=== PATIENT | female | born 1945 | race Caucasian/White ===

== ENCOUNTER 2018-08-30 08:02 | Day surgery (SDC) | payer MEDICARE, OTHER, SELFPAY ==
[2018-08-30 08:23] VITALS: BP 136/76; PULSE 75; RESP 16; TEMP 35.9; O2SAT 99
[2018-08-30] MEDS: Povidone-Iodine Soln. 118 ML BTL TP (08:42)
[2018-08-30] MEDS: Lactated Ringers 1,000 ML 80 ML IV (08:57)
[2018-08-30] MEDS: ceFAZolin 1 GM/50 ML BAG IVPB (10:00)
[2018-08-30] MEDS: Bupivacaine 0.5% Pres-Free 30 ML VIAL (10:20)
[2018-08-30] MEDS: Lidocaine 1% Pres-Free 5 ML VIAL (10:20)
[2018-08-30] MEDS: Dexamethasone 4 MG/ML VIAL (10:37)
--- NOTE | 2018-08-30 11:02 | W.PM.DSUDISC ---
Discharge Plan Disposition Patient Disposition: HOME Condition: Good Discharge Details Reason For Visit: HAV Attending Provider: Stephan Alfaro Primary Care Provider: Kya Perez Home Meds and New Rx's Prescriptions: No Action aspirin 325 mg Tablet 325 mg DAILY RF: 0 hydrochlorothiazide 25 mg Tablet 25 mg PO DAILY RF: 0 lovastatin 20 mg Tablet 20 mg PO DAILY RF: 0 metformin 1,000 mg Tablet 1,000 mg PO BID RF: 0 multivitamin Tablet DAILY RF: 0 Ozempic 0.25 mg or 0.5 mg(2 mg/1.5 mL) Pen Injector 0.5 mg SUBCUT QWEEK RF: 0 Tresiba FlexTouch U-100 100 unit/mL (3 mL) Insulin Pen 10 unit DAILY RF: 0 cyanocobalamin (vitamin B-12) [Vitamin B-12] 1,000 mcg Tablet 1,000 mcg DAILY RF: 0 cholecalciferol (vitamin D3) [Vitamin D3] 1,000 unit Capsule 1,000 DAILY RF: 0 acetaminophen [Tylenol] 325 mg Capsule 650 mg PO Q6H PRNRF: 0 Discharge Orders Discharge Orders: Discharge Order (Routine); Ordered 08/30/18 Ordered By: Stephan Alfaro DS: Diagnosis Discharge Diagnosis (1) Hallux valgus of right foot: Status: Acute
--- NOTE | 2018-08-30 11:36 | ROE_ITS ---
REPORT OF OPERATIVE PROCEDURE DATE OF PROCEDURE August 30, 2018 PREOPERATIVE DIAGNOSIS Symptomatic right hallux abductovalgus deformity. POSTOPERATIVE DIAGNOSIS Symptomatic right hallux abductovalgus deformity. PROCEDURE Modified Larose bunionectomy. SURGEON Stephan Alfaro DPM. ANESTHESIA IV general with local block of the first ray utilizing 10 cc of 50:50 mixture of 1% Lidocaine plain a nd 0.5% Marcaine plain. OPERATIVE INDICATIONS A 73-year-old female with pain associated with a right bunion deformity which has not responded to pa lliative measures. Jayla understands the risks and complications of surgery pertaining to pain, scarri ng, infection, stiffness of the joint. She understands the potential for revisional procedures. Infor med consent has been obtained. No promises made final outcome of surgery. DESCRIPTION OF REPORT OF OPERATION Jayla was brought to the Operative Suite and placed in the supine position, where the right foot was p repped and draped in the usual sterile podiatric fashion. Anesthesia being obtained, the right foot was exsanguinated, and a well-padded ankle tourniquet inflated to 150 mmHg. Attention was directed to the right foot, where a 5 cm incision was made medial incision was made par allel to the EHL tendon. The incision was deepened in controlled-depth fashion. Hemostasis being acqu ired with electrocautery. Dissection was carried down to the joint capsule. A lateral dissection was performed consisting of a lateral capsulotomy adductor tendon release. The hallux relaxed significant ly. A flexor hallucis longus tenotomy was then performed. More relaxation appreciated. Attention was now directed medially, an inverted L capsulotomy was performed. The joint capsule was opened. Hypertrophy along the medial and dorsal aspect of the first metatarsal head was noted. With p naidaer instrumentation, the medial and dorsal hyperostoses were resected. All roughened bony edges were rasped smooth. Copious irrigation was performed. Good correction was appreciated. Bone wax was used over the exposed bone on the neck of the first metatarsal. A medial capsulorraphy was then performed and the joint capsule repaired with simple interrupted sutu re #3-0 Vicryl. The subcutaneous was then closed with #4-0 Vicryl. The skin was coapted with continuous running sutur e #4-0 Monocryl. 4 mg of dexamethasone phosphate was infused into the wound. Mastisol, 1/2 inch Steri -Strips, Xeroform gauze fluff, compression dressings applied. The patient left the OR with vital sig ns stable, vascular status intact. Sharp and sponge counts were correct. She will be followed by myself in the office next week. CC: Kya Perez NP
[2018-08-30 11:45] VITALS: BP 149/84; PULSE 73; RESP 16; TEMP 36.4; O2SAT 98
== END 2018-08-30 12:15 | disposition home or self-care (01) ==
PROVIDERS: PCP Registered Nurse; Visit Provider Podiatrist
PROC: (CPT 28292; principal; 2018-08-30 10:30)
DX: M20.11 Hallux valgus (acquired), right foot (principal); M21.611 Bunion of right foot; E11.9 Type 2 diabetes mellitus without complications
CPT/HCPCS: 28292; J0690; J1100; J2250

== ENCOUNTER 2021-08-19 06:13 | Day surgery (SDC) | payer MEDICARE, OTHER, SELFPAY ==
[2021-08-19 06:23] VITALS: BP 158/92; PULSE 87; RESP 16; TEMP 36.7; O2SAT 99
[2021-08-19] MEDS: Tropicam./Phenyleph. (1/2.5%) 5 ML BTL OS ×3 (06:53→07:13)
--- NOTE | 2021-08-19 07:05 | W.ANESPRE ---
General Info Date of Service Date Performed: 08/19/21 Height: 5 ft 1 in Weight: 63.7 kg Body Mass Index (BMI): 26.5 Surgical Procedure: Operation Date: 08/19/21 07:40 Proposed Procedure Side Surgeon p Cataract Extraction with IOL Implant Left Wolf Escalona MD Meds Allergies and Home Medications Allergies Allergy/AdvReac Type Severity Reaction Status Date / Time Fish Containing Products AdvReac Intermediate vomiting Verified 08/19/21 06:42 Home Medication Medication Instructions Recorded acetaminophen 325 mg capsule 650 mg PO Q6H PRN 08/27/18 (Tylenol) cholecalciferol (vitamin D3) 25 25 mcg PO DAILY 08/27/18 mcg (1,000 unit) capsule (Vitamin D3) cyanocobalamin (vitamin B-12) 1,000 mcg DAILY 08/27/18 1,000 mcg tablet (Vitamin B-12) hydrochlorothiazide 25 mg tablet 25 mg PO DAILY 08/27/18 insulin degludec 100 unit/mL (3 10 unit DAILY 08/27/18 mL) subcutaneous pen (Tresiba FlexTouch U-100 insulin) lovastatin 20 mg tablet 20 mg PO DAILY 08/27/18 metformin 1,000 mg tablet 1,000 mg PO BID 08/27/18 multivitamin DAILY 08/27/18 semaglutide (Ozempic) 1 mg SUBCUT QWEEK 08/27/18 hydrocodone 5 mg-acetaminophen 325 1 tab PO Q6H PRN #7 tab 08/30/18 mg tablet ibuprofen 600 mg tablet 600 mg PO QID PRN #30 tab 08/30/18 ferrous sulfate 325 mg (65 mg 325 mg PO DAILY 08/16/21 iron) tablet magnesium 200 mg tablet 200 mg PO DAILY 08/16/21 ropinirole 4 mg tablet,extended 8 mg PO DAILY 08/16/21 release 24 hr Current Visit Medications: Current Medications Generic Name Dose Route Start Last Admin Trade Name Freq PRN Reason Stop Dose Admin Acetaminophen 1,000 mg 08/19/21 06:00 Acetaminophen 500 Mg Tab PO Q4H PRN PRN Miscellaneous Medication 0 ml 08/19/21 06:00 Prednisolone 1%, Moxifloxacin 0.5%, Nepafenac 0.1% 5ml Btl OS DIRECTED JEMIMA Miscellaneous Medication 0 ml 08/19/21 06:00 08/19/21 06:58 Tropicam./Phenyleph. (1/2.5%) 5 Ml Btl OS 1 drp DIRECTED JEMIMA Administration Tetracaine HCl 0 ml 08/19/21 06:00 Tetracaine 0.5% 4 Ml Btl OS DIRECTED JEMIMA PFSH Active Problems Active Problems: Problem Status Onset Code Hallux valgus of right foot M20.11 Nuclear sclerotic cataract of left eye H25.12 Cortical cataract of left eye H26.9 Medical History Medical History Cataract Diabetes High cholesterol HTN (hypertension) Hx of ear disorder ear pressure, take HCTZ for Over weight Restless legs syndrome (RLS) Surgical History Surgical History History of breast surgery Biopsy History of bunionectomy left History of carpal tunnel release History of tonsillectomy History of wisdom tooth extraction Hx of section Hx of colonoscopy Hx of foot surgery left mid tarsal dorsal exostectomy Trigger finger Tobacco Smoking/Tobacco Use Status: Never Alcohol Alcohol Intake: never Substance Use Substance use: Never Substance use type: does not use Vital Signs and Lab Results Vital Signs Most Recent Vital Signs in EMR: Most Recent Vital Signs Temp Pulse Resp BP Pulse Ox 36.7 C 87 16 158/92 H 99 08/19/21 06:23 08/19/21 06:23 08/19/21 06:23 08/19/21 06:23 08/19/21 06:23 Point of Care Results Point of Care Results: Finger Stick Blood Glucose 144 08/19/21 06:50 Lab Results Blood Type / Crossmatch: No Data to Display Complete Blood Count: No Data to Display Complete Metabolic Panel: No Data to Display Liver Function Panel: No Data to Display Coagulation Panel: No Data to Display Cardiac Panel: No Data to Display Arterial Blood Gas: No Data to Display Venous Blood Gas: No Data to Display Pancreas Panel: No Data to Display Thyroid Panel: No Data to Display Infectious Disease: No Data to Display Blood Cultures: No Data to Display Toxicology Panel: No Data to Display Anesthesia Assessment and Plan Anesthesia History Personal History: No History of Anesthesia Complications Family History: No Family History of Anesthesia Complications Exercise Tolerance Exercise Tolerance: Metabolic Equivalents>4 Pertinent Negatives Pertinent Negatives: No Symptoms of GERD Cardiac & Pulmonary Exam Cardiac Exam: Normal S1/S2 Heart Sounds Pulmonary Exam: Clear Bilateral Breath Sounds Implantable Cardiac Device Does patient have a Pacemaker or an ICD?: No Airway Exam Known Difficult Airway: No Mallampati Class: 3 Mouth Opening: Normal (> 3cm) Thyromental Distance: Less than 3 cm Neck Range of Motion: Full ROM Neck Circumference: Normal Teeth Condition: Normal Dentition ASA Classification ASA Score: ASA 2 Emergency Case?: No NPO Status NPO Status: NPO Clears >2 hours, Solids >8 hours Anesthesia Plan Resuscitation Status: Full Code Anesthesia Technique: MAC Anesthesia Airway Planned: Natural Airway Monitors Used: Standard Monitors
[2021-08-19 07:09] VITALS: BMI 26.5
[2021-08-19] MEDS: Tetracaine 0.5% 4 ML BTL OS (07:32)
[2021-08-19] MEDS: Balanced Salt Soln.-PLUS 500 ML BAG (07:46)
[2021-08-19] MEDS: Povidone-Iodine Ophth 30 ML BTL (07:48)
[2021-08-19] MEDS: Duovisc Viscoelastic System EACH 1 EACH (07:49)
[2021-08-19] MEDS: Lidocaine 2% Jelly 6 ML SYR (07:49)
--- NOTE | 2021-08-19 08:04 | W.PM.DSUDISC ---
Discharge Plan Disposition Patient Disposition: HOME Condition: Good Discharge Details Attending Provider: Wolf Escalona Primary Care Provider: ADITHYA TREVINO Home Meds and New Rx's Prescriptions: No Action hydrochlorothiazide 25 mg Tablet 25 mg PO DAILY 0RF lovastatin 20 mg Tablet 20 mg PO DAILY 0RF metformin 1,000 mg Tablet 1,000 mg PO BID 0RF multivitamin Tablet DAILY 0RF Ozempic 0.25 mg or 0.5 mg(2 mg/1.5 mL) Pen Injector 1 mg SUBCUT QWEEK 0RF Tresiba FlexTouch U-100 100 unit/mL (3 mL) Insulin Pen 10 unit DAILY 0RF cyanocobalamin (vitamin B-12) [Vitamin B-12] 1,000 mcg Tablet 1,000 mcg DAILY 0RF cholecalciferol (vitamin D3) [Vitamin D3] 1,000 unit Capsule 25 mcg PO DAILY 0RF acetaminophen [Tylenol] 325 mg Capsule 650 mg PO Q6H PRN0RF ibuprofen 600 mg tablet 600 mg PO QID PRN (Reason: pain) Qty: 30 0RF hydrocodone-acetaminophen 5-325 mg tablet 1 tab PO Q6H PRN (Reason: moderate pain) Qty: 7 0RF ferrous sulfate 325 mg (65 mg iron) Tablet 325 mg PO DAILY 0RF magnesium 200 mg Tablet 200 mg PO DAILY 0RF ropinirole [Requip XL] 4 mg Tablet Extended Release 24 Hr 8 mg PO DAILY 0RF Discharge Instructions Stand Alone Forms: Post-op Topical Cataract, Jb Ganey (DSU) Discharge Orders Discharge Orders: Discharge Order (Routine); Ordered 08/19/21 Ordered By: Wolf Escalona DS: Diagnosis Discharge Diagnosis (1) Nuclear sclerotic cataract of left eye: Status: Resolved (2) Cortical cataract of left eye: Status: Resolved
[2021-08-19 08:05] VITALS: BP 163/99; PULSE 83; RESP 16; TEMP 36.3; O2SAT 98
--- NOTE | 2021-08-19 08:05 | W.PM.OP ---
Date of service: 08/19/21 Time of Service: 08:05 Operative Note Operative Note DATE OF PROCEDURE: 08/19/21 PRE-OP DIAGNOSIS: Nuclear/cortical cataract, left eye POST-OP DIAGNOSIS: same PROCEDURE: Cataract extraction using phacoemulsification with intraocular lens implant, left eye SURGEON: Wolf Escalona ANESTHESIA TYPE: Local By Surgeon and MAC Refer to Anesthesia Record PATHOLOGY: none sent COMPLICATIONS: None Patient was transported to: same day Patient's condition: stable Implants: Rohan and Rohan / [employer] Tecnis [id number] Indications: Progressive decreased vision due to cataract, left eye Procedure Description: CATARACT SURGERY OPERATIVE REPORT PREOPERATIVE DIAGNOSIS: 1. Nuclear/cortical cataract, left eye POSTOPERATIVE DIAGNOSIS: Same OPERATION: 1. Cataract extraction using phacoemulsification with posterior chamber intraocular lens implant, left eye. IOL: IOL Palletiser Operator/Model: Rohan & Rohan / JOSSELINE Tecnis [id number] IOL Power: + 22.5 diopters IOL Serial Number: [id number] Optic Diameter: 6.0 mm Haptic/Overall Diameter: 13.0 mm PHACO INFO: Reynaldo [employer] Vision System with OZil and Active [employer]uidics Cumulative Dispersed Energy (CDE): 9.40 seconds SURGEON: Wolf Escalona MD, GEORGINA ANESTHESIA: Monitored A [facility] (MAC), with local sub-tenon's anesthetic infiltration COMPLICATIONS: None SPECIMENS: None INDICATIONS FOR PROCEDURE: The patient is a 76-year-old lady with history of narrow anterior chamber angles who has undergone bilateral laser iridotomy. She has developed symptomatic bilateral nuclear/cortical cataracts. The option of cataract surgery was offered to the patient and she wished to proceed. PROCEDURE: The correct surgical eye was identified and marked as the left eye and the pupil was dilated in the preoperative area using mydriatics and cycloplegics. The dilated pupil size was 6.0 mm. She elected to proceed without oral sedation. patient was brought to the operating room where cardiopulmonary monitoring was instituted and surgical time-out was performed, confirming the correct operative eye and IOL power. Topical anesthesia was administered and ophthalmic povidone-iodine 5% was instilled into the conjunctival fornices. Lidocaine gel was applied to the cornea and the farzad-ocular area was prepped with Betadine 10% solution and draped in the usual sterile fashion for intraocular surgery, including an aperture drape. A Tegaderm transparent film dressing was cut in half and used to cover the lashes and lid margins. Care was taken to sequester the lashes and lid margins under the Tegaderm dressing. A lid speculum was placed between the lids of the operative eye and the Reynaldo Lux[employer] Revalia operating microscope was maneuvered into position. Kathya scissors were then used to make a conjunctival buttonhole approximately 6mm posterior to the limbus in the inferonasal quadrant. Blunt dissection was carried out to expose bare sclera, and a blunt-tipped sub-tenon?s anesthesia cannula was introduced and passed posteriorly along the globe where non-preserved plain lidocaine was injected into posterior sub-Tenon?s space. A sideport knife was used to make a paracentesis port superiorly/superiortemporally. Intraocular phenylephrine/lidocaine was injected int the anterior chamber.. The anterior chamber was filled with viscoelastic. The anterior chamber was noted to be quite shallow. A 2.4mm keratome knife was used to create a half-thickness groove at the limbus and then to construct a three-plane near-clear corneal tunnel extending 2.0mm into clear cornea at the 3:00 position. A flap was raised on the anterior capsule and capsulorhexis forceps were used to complete a continuous curvilinear capsulorhexis of 5.0 mm. Balanced salt solution was then used to perform cortical cleaving hydrodissection and nuclear hydrodelineation until the lens could be freely rotated within the capsular bag. The lens nucleus was then disassembled and removed within the capsular bag and iris plane using phacoemulsification. Residual cortical material was removed using the 45-degree angled silicone I/A tip with 0.3mm port. The posterior capsule was carefully polished to remove as much residual lens epithelial cells as safely possible. The capsular bag was then inflated and the anterior chamber deepened with viscoelastic. The lens implant described above was inserted into the capsular bag using the JOSSELINE [place] Injector. A Kuglen hook was used to dial the IOL into position. Residual viscoelastic was then removed first from posterior to the IOL, then from the anterior chamber using the I/A handpiece. The lens implant was noted to center nicely within the capsular bag. The incisions were stromally hydrated, and the anterior chamber was reformed using BSS. Then 0.5cc of moxifloxacin 1.0mg/ml were injected into the capsular bag and anterior chamber. The incisions were checked with a Weck spear and found to be secure. Several drops of ophthalmic povidone-iodine 5% were then applied to the eye followed by two drops of Imprimis combination prednisolone/moxifloxacin/nepafenac solution. The drapes were removed and a clear plastic protective eye shield was placed over the eye. The patient was then returned to Same Day Surgery in stable condition.
--- NOTE | 2021-08-19 08:41 | W.ANESPOSTOP ---
Postoperative Evaluation Date, Time and Location Date Performed: 08/19/21 Time Performed: 08:10 Patient Location: Day Surgery Unit Vital Signs Most Recent Imported Vital Signs: Most Recent Vital Signs Temp Pulse Resp BP Pulse Ox 36.3 C L 83 16 163/99 H 98 08/19/21 08:05 08/19/21 08:05 08/19/21 08:05 08/19/21 08:05 08/19/21 08:05 Pain Score Most Recent Pain Score: Most Recent Pain Score Pain Level 0 08/19/21 08:05 Assessment Mental Status: Awake (Alert & Oriented to Patient Baseline) Airway and Respiratory Function: Patent airway with normal (patient baseline) respiratory exam Cardiovascular Function: Hemodynamically Stable Hydration Status: Adequately Hydrated Nausea & Vomiting: No Nausea or Vomiting Pain: Pt. Denies Any Pain Peripheral Nerve Block: Patient did not receive a nerve block
== END 2021-08-19 08:29 | disposition home or self-care (01) ==
PROVIDERS: PCP Registered Nurse; Visit Provider Ophthalmology
PROC: (CPT 66984; principal; 2021-08-19 07:30)
DX: H25.12 Age-related nuclear cataract, left eye (principal); E11.9 Type 2 diabetes mellitus without complications; E78.00 Pure hypercholesterolemia, unspecified; I10 Essential (primary) hypertension
CPT/HCPCS: 66984; V2632

== ENCOUNTER 2021-09-02 07:28 | Day surgery (SDC) | payer MEDICARE, OTHER, SELFPAY ==
--- NOTE | 2021-09-02 06:20 | W.ANESPRE ---
General Info Date of Service Date Performed: 09/02/21 Height: 5 ft 1 in Weight: 64 kg Body Mass Index (BMI): 26.6 Surgical Procedure: Operation Date: 09/02/21 09:10 Proposed Procedure Side Surgeon p Cataract Extraction with IOL Implant Right Wolf Escalona MD Meds Allergies and Home Medications Allergies Allergy/AdvReac Type Severity Reaction Status Date / Time Fish Containing Products AdvReac Intermediate vomiting Verified 09/02/21 07:38 Home Medication Medication Instructions Recorded acetaminophen 325 mg capsule 650 mg PO Q6H PRN 08/27/18 (Tylenol) cholecalciferol (vitamin D3) 25 25 mcg PO DAILY 08/27/18 mcg (1,000 unit) capsule (Vitamin D3) cyanocobalamin (vitamin B-12) 1,000 mcg DAILY 08/27/18 1,000 mcg tablet (Vitamin B-12) hydrochlorothiazide 25 mg tablet 25 mg PO DAILY 08/27/18 insulin degludec 100 unit/mL (3 10 unit DAILY 08/27/18 mL) subcutaneous pen (Tresiba FlexTouch U-100 insulin) lovastatin 20 mg tablet 20 mg PO DAILY 08/27/18 metformin 1,000 mg tablet 1,000 mg PO BID 08/27/18 multivitamin 1 tab PO DAILY 08/27/18 semaglutide 0.25 mg or 0.5 mg (2 1 mg subcut QWEEK 08/27/18 mg/1.5 mL) subcutaneous pen injector (Ozempic) hydrocodone 5 mg-acetaminophen 325 1 tab PO Q6H PRN moderate pain #7 08/30/18 mg tablet tabs ibuprofen 600 mg tablet 600 mg PO QID PRN pain #30 tabs 08/30/18 ferrous sulfate 325 mg (65 mg 325 mg PO DAILY 08/16/21 iron) tablet magnesium 200 mg tablet 200 mg PO DAILY 08/16/21 ropinirole 4 mg tablet,extended 8 mg PO DAILY 08/16/21 release 24 hr PFSH Active Problems Active Problems: Problem Status Onset Code Hallux valgus of right foot M20.11 Nuclear sclerotic cataract of left eye H25.12 Cortical cataract of left eye H26.9 Medical History Medical History Cataract Diabetes High cholesterol HTN (hypertension) Hx of ear disorder ear pressure, take HCTZ for Over weight Restless legs syndrome (RLS) Surgical History Surgical History (Updated 09/02/21 @ 07:38 by Judith Young) History of breast surgery Biopsy History of bunionectomy left History of carpal tunnel release History of cataract surgery History of tonsillectomy History of wisdom tooth extraction Hx of section Hx of colonoscopy Hx of foot surgery left mid tarsal dorsal exostectomy Trigger finger Tobacco Smoking/Tobacco Use Status: Never Alcohol Alcohol Intake: never Substance Use Substance use: Never Substance use type: does not use Vital Signs and Lab Results Vital Signs Most Recent Vital Signs in EMR: Temp Pulse Resp BP Pulse Ox 36.7 C 79 18 172/82 H 99 09/02/21 07:30 09/02/21 07:30 09/02/21 07:30 09/02/21 07:30 09/02/21 07:30 Lab Results Blood Type / Crossmatch: No Data to Display Complete Blood Count: No Data to Display Complete Metabolic Panel: No Data to Display Liver Function Panel: No Data to Display Coagulation Panel: No Data to Display Cardiac Panel: No Data to Display Arterial Blood Gas: No Data to Display Venous Blood Gas: No Data to Display Pancreas Panel: No Data to Display Thyroid Panel: No Data to Display Infectious Disease: No Data to Display Blood Cultures: No Data to Display Toxicology Panel: No Data to Display Anesthesia Assessment and Plan Anesthesia History Personal History: No History of Anesthesia Complications Family History: No Family History of Anesthesia Complications Exercise Tolerance Exercise Tolerance: Metabolic Equivalents>4 Cardiac & Pulmonary Exam Cardiac Exam: Normal S1/S2 Heart Sounds Pulmonary Exam: Clear Bilateral Breath Sounds Implantable Cardiac Device Does patient have a Pacemaker or an ICD?: No Airway Exam Known Difficult Airway: No Mallampati Class: 3 Mouth Opening: Normal (> 3cm) Thyromental Distance: Less than 3 cm Neck Range of Motion: Full ROM Neck Circumference: Normal Teeth Condition: Normal Dentition ASA Classification ASA Score: ASA 2 Emergency Case?: No NPO Status NPO Status: NPO Clears >2 hours, Solids >8 hours Anesthesia Plan Resuscitation Status: Full Code Anesthesia Technique: MAC Anesthesia Airway Planned: Natural Airway Monitors Used: Standard Monitors Preoperative Comments:: 76 yo female for cataract removal. Sig PMHx: HTN, DM, RLS. Previous Cat: no MKO.
[2021-09-02 07:30] VITALS: BP 172/82; PULSE 79; RESP 18; TEMP 36.7; O2SAT 99
[2021-09-02] MEDS: Tropicam./Phenyleph. (1/2.5%) 5 ML BTL ×3 (07:37→07:49)
[2021-09-02 07:51] VITALS: BMI 26.6
[2021-09-02] MEDS: Tetracaine 0.5% 4 ML BTL (08:47)
[2021-09-02] MEDS: Duovisc Viscoelastic System EACH 1 EACH (08:48)
[2021-09-02] MEDS: Balanced Salt Soln.-PLUS 500 ML BAG (08:48)
[2021-09-02] MEDS: Lidocaine 2% Jelly 6 ML SYR (08:49)
[2021-09-02] MEDS: Povidone-Iodine Ophth 30 ML BTL (08:50)
[2021-09-02 09:09] VITALS: BP 114/70; PULSE 78; RESP 16; TEMP 36.6; O2SAT 99
--- NOTE | 2021-09-02 09:14 | W.PM.DSUDISC ---
Discharge Plan Disposition Patient Disposition: HOME Condition: Good Discharge Details Attending Provider: Wolf Escalona Primary Care Provider: ADITHYA TREVINO Home Meds and New Rx's Prescriptions: No Action hydrochlorothiazide 25 mg Tablet 25 mg PO DAILY lovastatin 20 mg Tablet 20 mg PO DAILY metformin 1,000 mg Tablet 1,000 mg PO BID multivitamin Tablet 1 tab PO DAILY Ozempic 0.25 mg or 0.5 mg(2 mg/1.5 mL) Pen Injector 1 mg SUBCUT QWEEK Tresiba FlexTouch U-100 100 unit/mL (3 mL) Insulin Pen 10 unit DAILY cyanocobalamin (vitamin B-12) [Vitamin B-12] 1,000 mcg Tablet 1,000 mcg DAILY cholecalciferol (vitamin D3) [Vitamin D3] 1,000 unit Capsule 25 mcg PO DAILY acetaminophen [Tylenol] 325 mg Capsule 650 mg PO Q6H PRN ibuprofen 600 mg tablet 600 mg PO QID PRN (Reason: pain) Qty: 30 0RF hydrocodone-acetaminophen 5-325 mg tablet 1 tab PO Q6H PRN (Reason: moderate pain) Qty: 7 0RF ferrous sulfate 325 mg (65 mg iron) Tablet 325 mg PO DAILY magnesium 200 mg Tablet 200 mg PO DAILY ropinirole [Requip XL] 4 mg Tablet Extended Release 24 Hr 8 mg PO DAILY Discharge Instructions Stand Alone Forms: Post-op Topical Cataract, Jb Peoplesey (DSU) Discharge Orders Discharge Orders: Discharge Order (Routine); Ordered 09/02/21 Ordered By: Wolf Escalona DS: Diagnosis Discharge Diagnosis (1) Nuclear sclerotic cataract of right eye: Status: Resolved (2) Cortical cataract of right eye: Status: Resolved
--- NOTE | 2021-09-02 09:15 | W.PM.OP ---
Date of service: 09/02/21 Time of Service: 08:15 Operative Note Operative Note DATE OF PROCEDURE: 09/02/21 PRE-OP DIAGNOSIS: Nuclear/cortical cataract, right eye POST-OP DIAGNOSIS: same PROCEDURE: Cataract extraction using phacoemulsification with intraocular lens implant, right eye SURGEON: Wolf Escalona ANESTHESIA TYPE: Local By Surgeon and MAC Refer to Anesthesia Record ESTIMATED BLOOD LOSS: 0 PATHOLOGY: none sent COMPLICATIONS: None Patient was transported to: same day Patient's condition: stable Implants: Rohan & Rohan/JOSSELINE Tecnis [id number] Indications: Progressive visual loss due to cataract, right eye Procedure Description: CATARACT SURGERY OPERATIVE REPORT PREOPERATIVE DIAGNOSIS: 1. Nuclear/cortical cataract, right eye POSTOPERATIVE DIAGNOSIS: Same OPERATION: 1. Cataract extraction using phacoemulsification with posterior chamber intraocular lens implant, right eye. IOL: IOL Financial Legal Assistant/Model: Roh[employer] Rohan / JOSSELINE Tecnis [id number] IOL Power: + 22.5 diopters IOL Serial Number: [id number] Optic Diameter: 6.0mm Haptic/Overall Diameter: 13.0mm PHACO INFO: Reynaldo Zenaminsurion Vision System with OZil and Active Fluidics Cumulative Dispersed Energy (CDE): 6.87 seconds SURGEON: Wolf Escalona MD, GEORGINA ANESTHESIA: Monitored Anesthesia Care (MAC), with local sub-tenon's anesthetic infiltration COMPLICATIONS: None SPECIMENS: None INDICATIONS FOR PROCEDURE: The patient is a 76-year-old lady with history of diminished visual acuity in both eyes secondary to the development of nuclear/cortical cataract. She is already undergone cataract surgery in the left eye and is doing well postoperatively. She now presents for cataract surgery in the right eye. PROCEDURE: The correct surgical eye was identified and marked as the right eye and the pupil was dilated in the preoperative area using mydriatics and cycloplegics. The dilated pupil size was 6.5 mm. She elected to proceed without oral sedationthe patient was brought to the operating room where cardiopulmonary monitoring was instituted and surgical time-out was performed, confirming the correct operative eye and IOL power. Topical anesthesia was administered and ophthalmic povidone-iodine 5% was instilled into the conjunctival fornices. Lidocaine gel was applied to the cornea and the farzad-ocular area was prepped with Betadine 10% solution and draped in the usual sterile fashion for intraocular surgery, including an aperture drape. A Tegaderm transparent film dressing was cut in half and used to cover the lashes and lid margins. Care was taken to sequester the lashes and lid margins under the Tegaderm dressing. A lid speculum was placed between the lids of the operative eye and the Reynaldo Lux[employer] Revalia operating microscope was maneuvered into position. Kathya scissors were then used to make a conjunctival buttonhole approximately 6mm posterior to the limbus in the inferonasal quadrant. Blunt dissection was carried out to expose bare sclera, and a blunt-tipped sub-tenon?s anesthesia cannula was introduced and passed posteriorly along the globe where non-preserved plain lidocaine was injected into posterior sub-Tenon?s space. A sideport knife was used to make a paracentesis port inferotemporally. Intraocular phenylephrine/lidocaine was injected into the anterior chamber. The anterior chamber was filled with viscoelastic. A 2.4mm keratome knife was used to construct a 2-plane near-clear corneal tunnel extending 2.0mm into clear cornea superiortemporally. A flap was raised on the anterior capsule and capsulorhexis forceps were used to complete a continuous curvilinear capsulorhexis of 4.8 mm. Balanced salt solution was then used to perform cortical cleaving hydrodissection and nuclear hydrodelineation until the lens could be freely rotated within the capsular bag. The lens nucleus was then disassembled and removed within the capsular bag and iris plane using phacoemulsification. Residual cortical material was removed using the I/A handpiece. The posterior capsule was carefully polished to remove as much residual lens epithelial cells as safely possible. The capsular bag was then inflated and the anterior chamber deepened with viscoelastic. The lens implant described above was inserted into the capsular bag using the JOSSELINE Johnston Injector. A Kuglen hook was used to dial the IOL into position. Residual viscoelastic was then removed first from posterior to the IOL, then from the anterior chamber using the I/A handpiece. The lens implant was noted to center nicely within the capsular bag. The incisions were stromally hydrated, and the anterior chamber was reformed using BSS. Then 0.5cc of moxifloxacin 1.0mg/ml were injected into the capsular bag and anterior chamber. The incisions were checked with a Weck spear and found to be secure. Several drops of ophthalmic povidone-iodine 5% were then applied to the eye followed by two drops of Imprimis combination prednisolone/moxifloxacin/nepafenac solution. The drapes were removed and a clear plastic protective eye shield was placed over the eye. The patient was then returned to [facility] in stable condition.
--- NOTE | 2021-09-02 09:17 | W.ANESPOSTOP ---
Postoperative Evaluation Date, Time and Location Date Performed: 09/02/21 Time Performed: 08:17 Patient Location: Day Surgery Unit Vital Signs Most Recent Imported Vital Signs: Most Recent Vital Signs Temp Pulse Resp BP Pulse Ox 36.6 C 78 16 114/70 99 09/02/21 09:09 09/02/21 09:09 09/02/21 09:09 09/02/21 09:09 09/02/21 09:09 Pain Score Most Recent Pain Score: Most Recent Pain Score Pain Level 0 09/02/21 09:09 Assessment Mental Status: Awake (Alert & Oriented to Patient Baseline) Airway and Respiratory Function: Patent airway with normal (patient baseline) respiratory exam Cardiovascular Function: Hemodynamically Stable Hydration Status: Adequately Hydrated Nausea & Vomiting: No Nausea or Vomiting Pain: Pt. Denies Any Pain Peripheral Nerve Block: Patient did not receive a nerve block
== END 2021-09-02 09:34 | disposition home or self-care (01) ==
PROVIDERS: PCP Registered Nurse; Visit Provider Ophthalmology
PROC: (CPT 66984; principal; 2021-09-02 09:00)
DX: H25.11 Age-related nuclear cataract, right eye (principal); E11.9 Type 2 diabetes mellitus without complications; E78.00 Pure hypercholesterolemia, unspecified; I10 Essential (primary) hypertension
CPT/HCPCS: 66984; V2632